=== PATIENT | male | born 1975 | race Caucasian/White ===

== ENCOUNTER → 2018-08-14 | Outpatient (CLI) | payer BC ==
--- NOTE | 2018-08-14 15:09 | CARD ---
MR#: [id number] Date of Study: 08/14/2018 Ordering Physician: JOCELYN PINEDA, Referring Physician: Leonel HAM: Brie Dickey RDCS APPROVED REPORT INDICATION Dyspnea Fatigue PROCEDURE The patient underwent an Exercise Stress Test using the Kumar Protocol. Blood pressure, heart rate, a nd EKG were monitored. An Echocardiogram was performed by prepress technician in four stages in quad fashion. At peak stress four se lected images were obtained and placed side by side with resting images for comparison. STRESS ECHO FINDINGS The resting Echocardiogram showed normal left ventricular systolic contractility with an estimated Ej ection Fraction of about 60 %. The Resting Echocardiogram showed normal augmentation of myocardial wall segments using a 16 segment model. The Stress Echocardiogram showed normal augmentation of myocardial wall segments using a 16 segment m stacy. The Stress Echocardiogram left ventricular systolic contractility has an estimated Ejection Fraction of about 65%. Test Type: Exercise Stress Nurse/Tech: Mary García RN Test Indications: Fatigue Cardiac History and Allergies: Family history Medications: see EMR Medical History: see EMR Resting ECG: ST Resting Heart Rate: 115 bpm Resting Blood Pressure: 113/60mmHg Pretest Chest Pain: No chest pain Nurse/Tech Notes S1,S2 and lungs are clear to auscultation. Stress Symptoms No chest pain or symptoms.Fatigue POST EXERCISE Reason for Termination: Fatigue Target HR: Yes Max HR: 185 bpm 106% of Maximum Predicted HR: 175 bpm Exercise duration: 9:01 min:sec, 3 Stage Exercise capacity: 10.1METs Max Blood Pressure: 150/62mmHg Blood Pressure response to exercise: Normal blood pressure response during stress. Heart Rate response to exercise: WNL Chest Pain: No. Arrhythmia: No. INTERPRETATION Stress EKG Conclusion: The resting EKG showed a sinus rhythm with mild nonspecific ST-T wave changes . The stress EKG had no significant changes from baseline. No EKG evidence of stress-induced ischemia. Preliminary Notification Critical Value: No <Conclusion> Good exercise tolerance No chest pain reported with exertion No EKG evidence of stressed induced ischemia. Normal LV systolic function at rest. Normal LV systolic function with stress. No regional wall motion abnormalities. Low risk treadmill stress echo. Signed by : Ryan Hensley MD Electronically Approved : 08/14/2018 15:07:52
== END | disposition home or self-care (01) ==
LOC: ECHO 12:40
PROVIDERS: ATTEND Internal Medicine Cardiovascular Disease
DX: R06.09 Other forms of dyspnea (principal); R53.83 Other fatigue; Z82.49 Family history of ischemic heart disease and other diseases of the circulatory system
CPT/HCPCS: 93017; 93350

== ENCOUNTER → 2020-12-31 | Day surgery (SDC) | payer BC ==
[~2020-12-31] VITALS: Ht 182.9 cm; Wt 100.0 kg
[~2020-12-31] MED LIST: ASPI-630 PO; FAMO20TA5 PO; HYDR12.58 PO; LIDOCAINE 1%/EPI 1:100,000 20 ML VIAL. INJ ONE
[2020-12-31 10:47] VITALS: BP 134/93
--- NOTE | 2020-12-31 12:18 | PDOC4 ---
Operative Note Operative Note Date: December 31, 2020 at 1217 Preoperative diagnosis: Right thigh mass Postoperative diagnosis: Same Procedure: Excision of right thigh mass Surgeon: Malik Dictation: Patient is a 45-year-old gentleman is complaining of enlarging mass in his right thigh upper medial aspect. Sometimes it is painful. Procedure of excision was explained to the patient detail risk-benefit were also discussed including bleeding infection alternatives to this procedure also discussed with patient who seemed to understand and gave a verbal written consent to have the procedure performed. Patient was taken to the minors room placed in the supine position his right thigh was prepped and draped usual sterile fashion using ChloraPrep. Area over the mass was injected with 1% lidocaine with epinephrine once this was anesthetized and incision was made with 15 blade scalpel is carried down through the subcutaneous tissues. Metzenbaum scissors were used to sharply excise the mass which was 2 cm in diameter and sent for pathology. The 4 cm wound was closed in 2 layers deep layer running 3-0 Vicryl and the skin was reapproximated for subcuticular Monocryl Mastisol Steri-Strips and island dressings were applied. Patient tolerated procedure well was discharged to home in stable condition all sponge instrument needle counts listed as correct estimated blood loss 10 mL SANCHO KERN MD December 31, 2020 12:18
--- NOTE | 2020-12-31 12:19 | DISCH ---
DISCHARGE INSTRUCTIONS Condition on Discharge Condition on Discharge: Stable Activity After Discharge Activity Instructions for Disc: Resume previous activity Diet after Discharge Diet Texture: Regular Wound Incision Care Other wound/incision instructi: Ml shower in 24-hour Contacting the [facility] after DC Call your doctor for: If your condition worsens Follow-Up Follow up with: Dr. Kern in 2 weeks SANCHO KERN MD December 31, 2020 12:19
--- NOTE | 2021-01-04 14:57 | PATHOLOGY ---
[facility] Accession Number: [id number] . 01 Material submitted: . thigh - MASS RIGHT THIGH. Modifiers: right . 02 Diagnosis: Segment of fibroadipose tissue, right thigh mass excision: - Lipoma, with focal scarring and mild chronic inflammation. (JPM:joon; 01/04/2021) QMS 01/04/2021 0816 Local . 02 Comment: There is no evidence of malignancy. (JPM:joon; 01/04/2021) . 02 Electronically signed: . Matt Britton MD, Pathologist NPI- [id number] . 01 Gross description: . Fixative: Formalin Labeled: Mass right thigh Specimen received: Intact Dimensions: 3.4 x 2.1 x 1.1 cm External surface: Lobular, coombs yellow Cut surface: Lobular, coombs-yellow without hemorrhage or necrosis grossly identified . Director Of Orthopedics sections are submitted in A1-A2. ([facility]; 01/01/2021) GZA/GZA 01/01/2021 1146 Local . 02 Pathologist provided ICD-10: D17.39 . 02 CPT . 692784 Specimen Comment: A courtesy copy of this report has been sent to [phone], [phone] Specimen Comment: [id number] Specimen Comment: Report sent to ,DR SIMPSON / DR ORTIZ Performed at: [facility] [address], [place] [id number] MD Rogelio Solo MD Phone: [phone] [facility]formed at: [facility] [address] [place], [place] [id number] MD Matt Britton MD Phone: [phone]
== END | disposition home or self-care (01) ==
LOC: SURG 10:22
PROVIDERS: ATTEND Surgery
DX: D17.39 Benign lipomatous neoplasm of skin and subcutaneous tissue of other sites (principal); I10 Essential (primary) hypertension; K21.9 Gastro-esophageal reflux disease without esophagitis; Z79.899 Other long term (current) drug therapy; Z98.890 Other specified postprocedural states; Z79.82 Long term (current) use of aspirin; Z72.89 Other problems related to lifestyle; Z20.822 Contact with and (suspected) exposure to COVID-19
CPT/HCPCS: 27337; 87426; 88304; J3490; 11403; 27327